=== PATIENT | male | born 1965 | race African-American/Black ===

== ENCOUNTER 2016-12-20 21:47 | Emergency (ER) | payer SELFPAY ==
[~2016-12-20] VITALS: Ht 190.5 cm; Wt 81.5 kg
[~2016-12-20 21:47] MED LIST: ADVIL,NUPRIN,M200 MG PO; AMITRIPTYLINE H25 MG PO; AMLODIPINE BESY10 MG PO; AMLODIPINE BESYL5 MG PO; AMLODIPINE-BEN1 EAC3 PO; ANCEF,KEFZ2 GM/100 M IV; ASPIR-LOW81 MG PO; ATORVASTATIN CA80 MG PO; CEPHALEXIN500 M1 PO; CHLORTHALIDONE25 MG PO; CLOPIDOGREL75 MG PO; CYMBALTA30 MG PO; HALDOL5 MG PO; HUMULIN N100 UNIT/1 SQ; HUMULIN N100 UNITS/ SC; HYDROCHLOROTHIA25 MG PO; HYDROCODON-ACE1 EAC7 PO; LEVEMIR FL100 UNITS/ SC; LEVEMIR100 UNIT/2 SC; LISINOPRIL10 MG PO; LISINOPRIL20 MG PO; LISINOPRIL40 MG PO; LOPRESSOR100 M1 PO; LOPRESSOR50 MG PO; METOPROLOL TART25 MG PO; METOPROLOL TART50 MG PO; NOVOLOG 10100 UNITS/ SC; NOVOLOG PE100 UNITS/ SC; OMEPRAZOLE40 M1 PO; PRAVASTATIN SOD40 MG PO; PRILOSEC40 MG PO; SPIRONOLACTONE50 MG PO; TAMSULOSIN HCL0.4 MG PO; TRAMADOL HCL50 MG PO; TYLENOL REGULA325 MG PO
[2016-12-20 23:35] LABS: CHLORIDE 98 mEq/L (99-109); POTASSIUM 3.9 mEq/L (3.7-5.4); SODIUM 135 mEq/L (136-147)
[2016-12-20 23:37] LABS: GLUCOSE 377 mg/dL (70-99)
[2016-12-20 23:38] LABS: ANION GAP 11 MEQ/L (2-14)
[2016-12-20 23:39] LABS: TOTAL BILIRUBIN 0.4 mg/dL (0.0-1.0)
[2016-12-20 23:41] LABS: ALKALINE PHOSPHATASE 72 IU/L (3-129); GFR ESTIMATE (CALCULATED) > 59 mL/min/
[2016-12-20 23:42] LABS: UREA NITROGEN (BUN) 20 mg/dL (9-23)
[2016-12-20 23:44] LABS: LIPASE 52 U/L (1.0-51.0)
[2016-12-21 01:04] LABS: EOSINOPHIL (%) 1.2 % (0-5); EOSINOPHIL COUNT 0.1 K/uL (0-0.3); HEMATOCRIT 38.7 % (38.0-50.0); IMMATURE GRANULOCYTE (%) 0.2 % (0.0-0.7); INSTRUMENT ABS NEUTROPHIL CT 4.1 K/uL; LYMPHOCYTE COUNT 0.8 K/uL (1.0-2.8); MCH 23.5 PG (29.0-34.0); MCV 73.4 FL (86-99); MEAN PLAT.VOLUME 12.4 uM^3 (9.0-12.4); MONOCYTE (%) 3.8 % (3-12); MONOCYTE COUNT 0.2 K/uL (0-0.8); NEUTROPHIL COUNT 4.1 K/uL (1.8-6.4); PLATELET COUNT 164 K/uL (156-360); RBC DIS.WIDTH-CV 13.6 % (11.8-14.6); RBC DIS.WIDTH-SD 36.3 % (39-53); RED BLOOD COUNT 5.27 M/uL (4.00-5.50); WHITE BLOOD COUNT 5.2 K/uL (4.1-10.2)
[2016-12-21 01:20] LABS: ADD MIUA? YES; BILIRUBIN NEGATIVE; BLOOD SMALL; COLOR YELLOW ((YELLOW)); GLUCOSE (STRIP) >=500; KETONES 5; LEUKOCYTES NEGATIVE; NITRITE NEGATIVE; PROTEIN (STRIP) >=500; SPECIFIC GRAVITY 1.026 (1.000-1.030)
[2016-12-21 01:24] LABS: BACTERIA RARE /HPF; EPITHELIAL CELLS NONE SEEN /HPF; MUCUS NONE SEEN /LPF; RED BLOOD CELLS 30-40 /HPF (0-5); UCUL ADDED? NO; WHITE BLOOD CELLS 0-5 /HPF (0-5)
[2016-12-21] MEDS ORDERED: ZOFRAN4 MG PO (01:56)
[2016-12-21 03:26] VITALS: BP 192/129
== END 2016-12-21 03:30 | disposition home or self-care (01) ==
LOC: EME 21:47
PROVIDERS: Emergency Medicine
DX: R11.2 Nausea with vomiting, unspecified (principal); R31.9 Hematuria, unspecified; E11.9 Type 2 diabetes mellitus without complications; I10 Essential (primary) hypertension; Z86.73 Personal history of transient ischemic attack (TIA), and cerebral infarction without residual deficits; Z87.891 Personal history of nicotine dependence
CPT/HCPCS: 74177; 80053; 81003; 83605; 83690; 85025; 93005; 99281; 99285; J2405; J3010; J7030

== ENCOUNTER 2017-09-08 08:41 | Emergency (ER) | payer OTHER ==
[~2017-09-08] VITALS: Ht 193 cm; Wt 81.4 kg
[~2017-09-08 08:41] MED LIST changes: +ZOFRAN4 MG PO
[2017-09-08] MEDS ORDERED: NORCO 5/3251 TABLET PO (10:04)
[2017-09-08 10:29] VITALS: BP 209/128
== END 2017-09-08 10:50 | disposition home or self-care (01) ==
LOC: EME 08:41
PROVIDERS: Emergency Medicine Emergency Medical Services
DX: S72.431A Displaced fracture of medial condyle of right femur, initial encounter for closed fracture (principal); S72.441A Displaced fracture of lower epiphysis (separation) of right femur, initial encounter for closed fracture; K21.9 Gastro-esophageal reflux disease without esophagitis; I10 Essential (primary) hypertension; E11.9 Type 2 diabetes mellitus without complications; F32.9 Major depressive disorder, single episode, unspecified; F17.200 Nicotine dependence, unspecified, uncomplicated; W10.9XXA Fall (on) (from) unspecified stairs and steps, initial encounter; Z86.73 Personal history of transient ischemic attack (TIA), and cerebral infarction without residual deficits
CPT/HCPCS: 73564; 82948; 99281; 99285; J2270